=== PATIENT | male | born 1975 | race Caucasian/White ===

== ENCOUNTER 2017-12-01 11:18 | Inpatient (IN) | payer BC ==
[2017-12-01 12:13] LABS: ADD MAN DIFF? NO
[2017-12-01 12:23] LABS: BILIRUBIN,URINE NEGATIVE (NEG); CLARITY,URINE CLEAR; COLOR,URINE YELLOW; GLUCOSE,URINE NEGATIVE (NEG); NITRITE,URINE NEGATIVE (NEG); PH,URINE 5.5; PROTEIN,URINE NEGATIVE (NEG-TRACE); UROBILINOGEN,URINE 0.2 mg/dL (0.2 mg/dL)
[2017-12-01 12:24] LABS: BASO % 1 % (0-3); EOS # 0.2 x10^3/uL (0.0-0.7); EOS % 3 % (0-3); HEMATOCRIT 46.4 % (39.0-53.0); HEMOGLOBIN 15.9 g/dL (13.0-17.5); LYMPH # 1.6 x10^3/uL (1.0-4.8); LYMPH % 30 % (24-48); MEAN CORPUSCULAR HEMOGLOBIN 30 pg (25-35); MEAN CORPUSCULAR HGB CONC 34 g/dL (31-37); MEAN CORPUSCULAR VOLUME 87 fL (79-100); MONO # 0.5 x10^3/uL (0.0-1.1); MONO % 9 % (0-9); NEUT % 57 % (31-73); PLATELET COUNT 206 x10^3/uL (140-400); RED BLOOD COUNT 5.34 x10^6/uL (4.30-5.70); RED CELL DISTRIBUTION WIDTH 13.5 % (11.5-14.5); WHITE BLOOD COUNT 5.3 x10^3/uL (4.0-11.0)
[2017-12-01 12:31] LABS: INR 0.9 (0.8-1.1); PARTIAL THROMBOPLASTIN TIME 29 SEC (24-38); PROTHROMBIN TIME PATIENT 12.1 SEC (11.7-14.0)
[2017-12-01 12:32] LABS: ANION GAP 8 (6-14); BLOOD UREA NITROGEN 15 mg/dL (8-26); BUN/CREATININE RATIO 15 (6-20); CALCIUM 8.6 mg/dL (8.5-10.1); CARBON DIOXIDE 29 mmol/L (21-32); CHLORIDE 104 mmol/L (98-107); GFR 82.8; GLUCOSE 124 mg/dL (70-99); POTASSIUM 4.2 mmol/L (3.5-5.1); SODIUM 141 mmol/L (136-145)
[2017-12-01 12:33] LABS: AMPHETAMINE/METHAMPHETAMINE NEG (NEG); BARBITURATES NEG (NEG); BENZODIAZEPINES NEG (NEG); CANNABINOIDS NEG (NEG); COCAINE NEG (NEG); ETHANOL, URINE NEG (NEG); METHADONE NEG (NEG); OPIATES NEG (NEG); PHENCYCLIDINE NEG (NEG)
[2017-12-01 12:33] LABS: ETHANOL < 10 mg/dL (0-10)
[2017-12-01 12:34] LABS: BACTERIA,URINE 0 /HPF (0-FEW); RBC,URINE 0 /HPF (0-2); WBC,URINE OCC /HPF (0-4)
[2017-12-01 12:38] LABS: ALBUMIN 3.8 g/dL (3.4-5.0); ALBUMIN/GLOBULIN RATIO 1.2 (1.0-1.7); ALK PHOS 62 U/L (46-116); ALT (SGPT) 39 U/L (16-63); AST (SGOT) 19 U/L (15-37); TOTAL BILIRUBIN 0.4 mg/dL (0.2-1.0)
[2017-12-01 12:44] LABS: TROPONINI < 0.017 ng/mL (0.000-0.055)
[2017-12-01] MEDS: ASPIRIN 325 MG TABLET PO (13:59)
[2017-12-01] MEDS ORDERED: ONDANSETRON PF 4 MG/2 ML VIAL. IV (14:15)
[2017-12-01] MEDS ORDERED: ACETAMINOPHEN 325 MG TABLET. PO (14:15)
[2017-12-02 04:34] LABS: ADD MAN DIFF? NO
[2017-12-02 04:40] LABS: BASO % 1 % (0-3); EOS # 0.2 x10^3/uL (0.0-0.7); EOS % 3 % (0-3); HEMATOCRIT 45.7 % (39.0-53.0); HEMOGLOBIN 15.8 g/dL (13.0-17.5); LYMPH # 2.4 x10^3/uL (1.0-4.8); LYMPH % 36 % (24-48); MEAN CORPUSCULAR HEMOGLOBIN 30 pg (25-35); MEAN CORPUSCULAR HGB CONC 35 g/dL (31-37); MEAN CORPUSCULAR VOLUME 87 fL (79-100); MONO # 0.6 x10^3/uL (0.0-1.1); MONO % 9 % (0-9); NEUT # 3.4 x10^3uL (1.8-7.7); NEUT % 52 % (31-73); PLATELET COUNT 200 x10^3/uL (140-400); RED BLOOD COUNT 5.28 x10^6/uL (4.30-5.70); RED CELL DISTRIBUTION WIDTH 13.9 % (11.5-14.5); WHITE BLOOD COUNT 6.6 x10^3/uL (4.0-11.0)
[2017-12-02 04:54] LABS: ANION GAP 7 (6-14); BLOOD UREA NITROGEN 14 mg/dL (8-26); CALCIUM 9.1 mg/dL (8.5-10.1); CARBON DIOXIDE 29 mmol/L (21-32); CHLORIDE 106 mmol/L (98-107); GFR 82.8; GLUCOSE 95 mg/dL (70-99); POTASSIUM 4.1 mmol/L (3.5-5.1); SODIUM 142 mmol/L (136-145)
[2017-12-02 13:18] LABS: CHOLESTEROL 236 mg/dL (0-200); CHOLESTEROL/HDL RATIO 6.9; HDLC 34 mg/dL (40-60); LDLC 163 mg/dL (0-100); NON-HDL CHOLESTEROL 202 mg/dL (0-129); TRIGLYCERIDES 197 mg/dL (0-150); VLDLC 39 mg/dL (0-40)
[2017-12-02 13:21] LABS: THYROID STIM HORMONE (TSH) 1.851 uIU/mL (0.358-3.74)
[2017-12-02] MEDS: ASPIRIN 325 MG TABLET PO (13:42)
[2017-12-02] MEDS ORDERED: GADOBUTROL 7.5 MMOL/7.5 ML VIAL IV ×2 (14:00)
[2017-12-02] MEDS: LORazepam 1 MG TABLET PO (15:04)
[2017-12-02] MEDS ORDERED: ATORVASTATIN CALCIUM 10 MG TABLET. PO (21:00)
[2017-12-03] MEDS ORDERED: ASPIRIN 325 MG TABLET PO (08:00)
== END 2017-12-02 19:48 | disposition home or self-care (01) | DRG 93 ==
LOC: ER 11:18 → 6 SOUTH 14:12
DX: R20.2 Paresthesia of skin (principal); E66.9 Obesity, unspecified; E78.5 Hyperlipidemia, unspecified; F17.210 Nicotine dependence, cigarettes, uncomplicated; Z68.38 Body mass index [BMI] 38.0-38.9, adult; Z82.49 Family history of ischemic heart disease and other diseases of the circulatory system; Z83.3 Family history of diabetes mellitus; Z88.8 Allergy status to other drugs, medicaments and biological substances; Z88.1 Allergy status to other antibiotic agents
CPT/HCPCS: 36415; 70450; 70551; 71045; 80048; 80053; 80061; 80307; 81001; 84443; 84484; 85025; 85610; 85730; 93005; 93880; 99285; 99285-25; 99406; C8929; G0480

== ENCOUNTER 2017-12-04 18:24 | Observation (INO) | payer BC ==
[2017-12-04] MEDS ORDERED: ONDANSETRON PF 4 MG/2 ML VIAL. IV (21:30)
[2017-12-04] MEDS ORDERED: ACETAMINOPHEN 325 MG TABLET. PO (21:30)
[2017-12-04] MEDS ORDERED: fentaNYL PF VIAL 100 MCG/2 ML VIAL IV (21:30)
[2017-12-04] MEDS ORDERED: DEXAMETHASONE SOD PHOS 4 MG/ML VIAL (21:52)
[2017-12-04] MEDS: DEXAMETHASONE SOD PHOS 4 MG/ML VIAL IV (21:55)
[2017-12-05] MEDS: IV NORMAL SALINE 1000ML BAG 1,000 ML IV ×2 (00:27→06:20)
[2017-12-05 01:17] LABS: ADD MAN DIFF? NO
[2017-12-05 01:19] LABS: BASO % 1 % (0-3); EOS # 0.2 x10^3/uL (0.0-0.7); EOS % 3 % (0-3); HEMATOCRIT 43.8 % (39.0-53.0); HEMOGLOBIN 15.2 g/dL (13.0-17.5); LYMPH # 2.2 x10^3/uL (1.0-4.8); LYMPH % 34 % (24-48); MEAN CORPUSCULAR HEMOGLOBIN 30 pg (25-35); MEAN CORPUSCULAR HGB CONC 35 g/dL (31-37); MEAN CORPUSCULAR VOLUME 87 fL (79-100); MONO # 0.5 x10^3/uL (0.0-1.1); MONO % 8 % (0-9); NEUT # 3.5 x10^3uL (1.8-7.7); NEUT % 54 % (31-73); PLATELET COUNT 226 x10^3/uL (140-400); RED BLOOD COUNT 5.02 x10^6/uL (4.30-5.70); RED CELL DISTRIBUTION WIDTH 13.6 % (11.5-14.5); WHITE BLOOD COUNT 6.5 x10^3/uL (4.0-11.0)
[2017-12-05 01:38] LABS: ANION GAP 7 (6-14); BLOOD UREA NITROGEN 18 mg/dL (8-26); CALCIUM 8.9 mg/dL (8.5-10.1); CARBON DIOXIDE 30 mmol/L (21-32); CHLORIDE 103 mmol/L (98-107); CREATININE 0.9 mg/dL (0.7-1.3); GFR 93.5; GLUCOSE 73 mg/dL (70-99); POTASSIUM 4.1 mmol/L (3.5-5.1); SODIUM 140 mmol/L (136-145)
[2017-12-05] MEDS ORDERED: ACETAMINOPHEN 325 MG TABLET. PO (10:15)
[2017-12-05] MEDS: FAMOTIDINE 20 MG TABLET. PO (10:23)
[2017-12-05] MEDS ORDERED: ATORVASTATIN CALCIUM 20 MG TABLET PO (21:00)
== END 2017-12-05 15:09 | disposition home or self-care (01) ==
LOC: ER 18:24 → 6 SOUTH 20:41
DX: R53.1 Weakness (principal); R20.0 Anesthesia of skin; G62.9 Polyneuropathy, unspecified; F17.210 Nicotine dependence, cigarettes, uncomplicated; E66.9 Obesity, unspecified; E78.5 Hyperlipidemia, unspecified; I10 Essential (primary) hypertension; Z82.49 Family history of ischemic heart disease and other diseases of the circulatory system; Z83.3 Family history of diabetes mellitus
CPT/HCPCS: 36415; 70450; 72125; 72141; 72146; 80048; 85025; 96361; 96374; 96375; 99285; G0378; G0379; J1100; J2060; J7030